=== PATIENT | male | born 1975 | race African-American/Black ===

== ENCOUNTER → 2017-05-29 | Outpatient (REF) | payer OTHER, SELFPAY ==
[2017-05-29 14:27] LABS: #IMMOTILE SPERM COUNTED 10; #MOTILE SPERM COUNTED 4; % MOTILITY 29 (> 40%); TOTAL # SPERM COUNTED 14 M/ml
== END ==
LOC: M LAB REF 14:20
PROVIDERS: ATTEND Obstetrics & Gynecology
DX: Z31.41 Encounter for fertility testing (principal)

== ENCOUNTER → 2017-06-11 | Outpatient (REF) | payer OTHER, SELFPAY ==
[2017-06-11 18:11] LABS: % NORMAL FORMS < 4 % (>=4); IMMOTILITY 85 %; NON PROGRESSIVE MOTILITY (c) 13 %; PROGRESSIVE MOTILITY (a) 2 % (>=32); SPERM ABNORMAL FORMS OTHER (SPECIFIY); SPERM# 26.8 M/Ejac (>=39); TOTAL FUNCTIONAL 0 M/Ejac.; TOTAL MOTILITY 15 % (>=40); TOTAL PROGRESSIVE SPERM 0.4 M/Ejac.
== END ==
LOC: M LAB REF 15:38
PROVIDERS: ATTEND Specialist
DX: Z98.52 Vasectomy status (principal)

== ENCOUNTER 2018-09-04 04:37 | Emergency (ER) | payer OTHER, SELFPAY ==
[2018-09-04 05:29] LABS: BASO % 0.1 % (0.0-1.0); EOS % 0.2 % (0.0-3.0); HEMATOCRIT 38.1 % (42.0-52.0); HEMOGLOBIN 12.1 g/dl (13.5-17.5); IMMATURE GRANULOCYTE % 0.3 % (0-3.0); LYMPH # 1.4 10^3/uL (1.5-4.5); LYMPH % 13.1 % (24.0-44.0); MEAN CORPUSCULAR HEMOGLOBIN 23.5 pg (27.0-33.0); MEAN CORPUSCULAR HGB CONC 31.8 g/dl (32.0-36.5); MONO # 0.9 10^3/uL (0.0-0.8); MONO % 8.6 % (0.0-5.0); NEUTROPHILS # 8.5 10^3/uL (1.8-7.7); NEUTROPHILS % 77.7 % (36.0-66.0); PLATELET COUNT, AUTOMATED 276 10^3/uL (150-450); RED BLOOD COUNT 5.15 10^6/uL (4.30-6.10)
[2018-09-04 05:49] LABS: ANION GAP 8 MEQ/L (8-16); AST/SGOT 33 U/L (7-37); BLOOD UREA NITROGEN 19 MG/DL (7-18); CALCIUM LEVEL 8.8 MG/DL (8.5-10.1); CARBON DIOXIDE LEVEL 25 MEQ/L (21-32); CHLORIDE LEVEL 110 MEQ/L (98-107); CREATININE FOR GFR 1.68 MG/DL (0.70-1.30); GLOMERULAR FILTRATION RATE 57.8 (>60); GLUCOSE, FASTING 120 MG/DL (70-100); POTASSIUM SERUM 3.9 MEQ/L (3.5-5.1); SODIUM LEVEL 143 MEQ/L (136-145)
[2018-09-04 05:50] LABS: ALBUMIN 3.4 GM/DL (3.2-5.2); ALBUMIN/GLOBULIN RATIO 0.97 (1.00-1.93); ALKALINE PHOSPHATASE 91 U/L (45-117); ALT/SGPT 47 U/L (12-78); BILIRUBIN,DIRECT < 0.1 MG/DL (0.0-0.2); BILIRUBIN,TOTAL 0.4 MG/DL (0.2-1.0); LIPASE 121 U/L (73-393); TOTAL PROTEIN 6.9 GM/DL (6.4-8.2)
[2018-09-04] MEDS: KETOROLAC 30 MG/ML VIAL (J1885) IV (06:15)
[2018-09-04] MEDS: ONDANSETRON 4MG/2ML VIAL (J2405) IV (06:15)
[2018-09-04] MEDS: NS 1,000 ML IV (06:30)
[2018-09-04 06:41] LABS: KETONE, URINE AUTO RFX NEGATIVE (NEGATIVE); LEUKOCYTE ESTERASE UR AUTO RFX NEGATIVE (NEGATIVE); MUCUS, URINE RFX SMALL (NEGATIVE); NITRITE, URINE AUTO RFX NEGATIVE (NEGATIVE); RBC, URINE AUTO RFX 3 /HPF (0-3); SPECIFIC GRAVITY UR AUTO RFX 1.026 (1.002-1.035); SQUAM EPITHELIAL CELL UR AURFX 0 /HPF (0-6); WBC, URINE AUTO RFX 1 /HPF (0-3)
== END 2018-09-04 09:30 | disposition home or self-care (01) ==
LOC: M ED 04:37
DX: N20.1 Calculus of ureter (principal); N20.0 Calculus of kidney; Z91.018 Allergy to other foods
CPT/HCPCS: J2405

== ENCOUNTER → 2023-01-30 | Outpatient (CLI) | payer OTHER ==
[~2023-01-30] MED LIST: FLOM0.4C39 PO; PERC5TAB12 PO
== END ==
LOC: M LAB 16:24
PROVIDERS: ATTEND Allergy & Immunology Allergy
DX: T78.1XXA Other adverse food reactions, not elsewhere classified, initial encounter (principal)

== ENCOUNTER 2023-04-16 08:37 | Day surgery (SDC) | payer OTHER ==
[~2023-04-16] VITALS: Ht 185.4 cm; Wt 153.8 kg
[~2023-04-16 08:37] MED LIST changes: +AMLO1TAB25 PO; +ASCO100013 PO; +CELE1CAP7 PO; +CYCL-707 PO; +LOSA100T46 PO; +NS 1,000 ML IV ONE; +RIZA10TA58 PO; +VITA500045 PO; +VITMTA PO
[2023-04-16] MEDS ORDERED: propofoL 200 MG/20 ML VIAL As Ordered ONE (10:37)
[2023-04-16 10:54] VITALS: TEMP 97.4
[2023-04-16 11:15] VITALS: BP 103/60; O2SAT 99
== END 2023-04-16 12:10 | disposition home or self-care (01) ==
LOC: M OPP 08:37
PROVIDERS: ATTEND Internal Medicine Gastroenterology
DX: Z12.11 Encounter for screening for malignant neoplasm of colon (principal); Z86.010 Personal history of colon polyps; K64.0 First degree hemorrhoids; Z87.891 Personal history of nicotine dependence

== ENCOUNTER → 2023-06-19 | Outpatient (CLI) | payer OTHER ==
[~2023-06-19] MED LIST changes: -NS 1,000 ML IV ONE
== END ==
LOC: M PLAIMG 06:31
PROVIDERS: ATTEND Physician Assistant Surgical
DX: M75.51 Bursitis of right shoulder (principal); M75.52 Bursitis of left shoulder; R93.7 Abnormal findings on diagnostic imaging of other parts of musculoskeletal system